=== PATIENT | female | born 1980 | race Two or more races ===

== ENCOUNTER 2023-11-14 19:07 | Emergency (ER) | payer BC, SELFPAY ==
[2023-11-14 19:14] VITALS: BP 118/85; PULSE 82; RESP 18; TEMP 36.7; O2SAT 97
--- NOTE | 2023-11-14 19:39 | ED.WOUNDLAC1 ---
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 Tetanus is no tup to date. No other injuries or complaints. She said that this occurred at work but she does not want to file a Worker's Compensation Related Data Allergies Allergy/AdvReac Type Severity Reaction Status Date / Time No Known Drug Allergies Allergy Verified 11/14/23 19:18 [facility] PFS Social History Smoking status: Never smoker Exam Narrative Exam Narrative: Nurses notes and vital signs reviewed and patient is not hypoxic. afebrile General: Well-appearing and in no apparent distress. Skin: Warm, dry, no pallor noted. Eye: Pupils are equal, round and EOMI. No scleral icterus. Cardiovascular: normal peripheral perfusion. Respiratory: No accessory muscle use or respiratory distress. Musculoskeletal: RIGHT HAND - gaping laceration right 5th finger measuring 1cm and penetrating into the subcutaneous tissue but not the extensor tendon or any arterial structure. No foreign material noted. No other injury to the hand, fingers of the right hand with normal ROM, no edema/swelling Neurological: A&O x4. No cranial nerve dysfunction observed. No truncal ataxia. Moves all extremities. Sensation intact. Psychiatric: Cooperative and interactive. Normal mood and affect. Constitutional Vital Signs, click to edit/add: Last Vital Signs Temp 98.0 F 11/14/23 19:14 Pulse 82 11/14/23 19:14 Resp 18 11/14/23 19:14 BP 118/85 11/14/23 19:14 Pulse Ox 97 11/14/23 19:14 Course Vital Signs Vital signs: Vital Signs Temperature 98.0 F 11/14/23 19:14 Pulse Rate 82 11/14/23 19:14 Respiratory Rate 18 11/14/23 19:14 Blood Pressure 118/85 11/14/23 19:14 Pulse Oximetry 97 11/14/23 19:14 Temperature 98.0 F 11/14/23 19:14 Pulse Rate 82 11/14/23 19:14 Respiratory Rate 18 11/14/23 19:14 Blood Pressure 118/85 11/14/23 19:14 Pulse Oximetry 97 11/14/23 19:14 MDM - Wound/Laceration MDM Narrative Medical decision making narrative: tetanus updated. Laceration repair: All of the procedure was done under sterile conditions. Wound cleansed with Hibiclens solution and anesthetized with local injection of approximately 3mL of lidocaine 1% without epinephrine and then the wound was irrigated with approximately 3 mL of the same 1% lidocaine without epinephrine. The wound was explored to depth and found to be free of foreign material. The laceration wound edges were well-approximated and did not require revision. Wound closed with 5 sterile 4-0 ethilon sutures in simple interrupted fashion. Patient tolerated the procedure well. The patient was neurovascularly intact post-repair. Topical bacitracin applied to the laceration and it was dressed with a dry sterile dressing. The patient will need to follow-up in the next 10 days for removal. Patient was instructed to have the sutures removed either at a local urgent care, her primary care physician or she could return to the emergency department if needed. Discharge Plan Discharge Chief Complaint: Wound/Laceration Clinical Impression: Laceration Patient Disposition: Home, Self-Care Time of Disposition Decision: 20:06 Print Language: Macedonian Instructions: Finger Laceration (ED) Stand Alone Forms: Portal Instructions Referrals: Physician,Non-Staff, MD [Primary Care Provider] - 1 week Procedures ED Laceration Laceration Laceration 1: Additional comments: See my description and MDM
[2023-11-14] MEDS: ADACEL DIPH,PERTUSS(ACELL),TET VAC/PF 0.5 ML ADULT SYRINGE IM (20:22)
[2023-11-14] MEDS: LIDOCAINE HCL 1% 100 MG/10 ML MDV INJ (20:22)
[2023-11-14] MEDS: HYDROCODONE/ACET 5-325 MG TABLET 1 TAB PO (20:22)
== END 2023-11-14 20:32 | disposition home or self-care (01) ==
PROVIDERS: Emergency Provider Emergency Medicine
DX: S61.216A Laceration without foreign body of right little finger without damage to nail, initial encounter (principal); W26.8XXA Contact with other sharp object(s), not elsewhere classified, initial encounter; Z23 Encounter for immunization
CPT/HCPCS: 12001; 90471; 90715; 99284

== ENCOUNTER 2024-11-15 19:44 | Emergency (ER) | payer BC, SELFPAY ==
[2024-11-15 19:47] VITALS: BP 114/87; PULSE 88; TEMP 36.6; O2SAT 100
--- OUTSIDE RECORDS SUMMARY | 2024-11-15 19:48 | XMS_ITS | CCD ---
Author Organization [facility] [employer] [facility] Care Team Providers Care Telemarketing Supervisor Name Role Phone Unavailable Primary Care Provider ARRON Moody Attending Unavailable Medications Completed/Discontinued Medications Medication Drug Class(es) Dates Sig (Normalized) Sig (Original) acetaminophen 500 mg oral tablet (1 source) Start: 11-15-2022 End: 11-15-2022 acetaminophen (TYLENOL) tablet 1,000 mg Start: 11-15-2022 End: 11-15-2022 acetaminophen (TYLENOL) tabl et 1,000 mg Problems Problem Classification Problem Date Documented Da te Episodic/Chronic Other non-traumatic joint disorders (1 source) Pain of left wrist; Translations: [Pain in left wrist] Episodic Other non-traumatic joint disorders (2 sources) Pain in wrist; Translations: [Wrist Pain] Onset: 11-15-2022 Episodic Results Test Name Value Interpretation Reference Range Facil ity XR WRIST LEFT (MIN 3 VIEWS)o n 11-15-2022 XR WRIST LEFT (MIN 3 VIEWS) EXAMINATION: 3 XRAY VIEWS OF THE LEFT WRIST 11/15/2022 9:58 am COMPARISON: None. HISTORY: ORDERING SYSTEM PROVIDED HISTORY: pain TECHNOLOGIST PROVIDED HISTORY: pain FINDINGS: No fracture or dislocation. No destructive or erosive osseous change. Joint spaces are preserved. Bone mineralization is within normal limits. IMPRESSION: No significant osseous abnormality Interpreted by: Kunal Stewart MD Signed by: Kunal Stewart MD 11/15/22 Final result Normal [facility] No significant osseous abnormality [facility] EXAMINATION: 3 XRAY VIEWS OF THE LEFT WRIST 11/15/2022 9:58 am COMPARISON: None. HISTORY: ORDERING SYSTEM PROVIDED HISTORY: pain TECHNOLOGIST PROVIDED HISTORY: pain FINDINGS: No fracture or dislocation. No destructive or erosive osseous change. Joint spaces are preserved. Bone mineralization is within normal limits. [facility] Kunal Stewart MD - 11/15/2022 EXAMINATION: 3 XRAY VIEWS OF THE LEFT WRIST 11/15/2022 9:58 am COMPARISON: None. HISTORY: ORDERING SYSTEM PROVIDED HISTORY: pain TECHNOLOGIST PROVIDED HISTORY: pain FINDINGS: No fracture or dislocation. No destructive or erosive osseous change. Joint spaces are preserved. Bone mineralization is within normal limits. IMPRESSION: No significant osseous abnormality [employer] Work Phone: Radiology Study observation (narrative) [employer] Work Phone: XR WRIST LEFT (MIN 3 VIEWS)O rdered By: Kunal Stewart on 11-15-2022 [employer] [facility] [employer] Work Phone: Vital Signs Date Time Vital Sign Value Performing Clinician Faci lity 11-15-2022 09:46-0500 Body temperature 97.81 [degF] Arron Calderon [employer] Phone: [employer] 11-15-2022 09:46-0500 Diastolic blood pressure 72 mm[Hg] Arron Calderon [employer] Phone: [employer] 11-15-2022 09:46-0500 Heart rate 70 /min Arron Calderno DO [employer] Phone: [employer] 11-15-2022 09:46-0500 Respiratory rate 16 /min Arron Calderon [employer] Phone: [employer] 11-15-2022 09:46-0500 SaO2% (BldA) [Mass fraction] 99 % Arron Calderon DO [employer] Phone: [employer] 11-15-2022 09:46-0500 Systolic blood pressure 94 mm[Hg] Arron Calderon DO [employer] Phone: [employer] Encounters Encounter Date Encounter Type Care Provider Facility Start: 11-15-2022 Emergency department [facility] Start: 11-15-2022 End: 11-15-2022 Emergency department patient visit Arron Calderon DO Work Phone: [facility] ED Comment on above: Left wrist pain (Brittni mitch Dx) Procedures Date Procedure Procedure Detail Performing Clinician Start: 11-15-2022 Radex wrist complete minimum 3 views Arron Calderon DO Work Phone: Plan of Treatment Date Care Activity Detail Author Start: 04-17-2022 Influenza vaccination Flu vaccine (# 1) [facility] Start: 2020 Lipid panel Lipids [facility] Start: 2010 Screening for malign ant neoplasm of cervix [facility] Start: 2001 Screening for malign ant neoplasm of cervix Pap smear [facility] Start: 1999 DTaP/Tdap/Td vaccine (1 - Tdap) DTaP/Tdap/Td vaccine (1 - Tdap) [facility] Start: 1998 Hepatitis C screening Hepatitis C sc reen [facility] Start: 1995 HIV screening HIV screen [facility] Start: 1992 Depression Screen Depression Screen [facility] Start: 1981 Varicella vaccine (1 of 2 - 2-dose childhood series) Varicella vaccine (1 of 2 - 2-dose childhood series) [facility] Start: 1980 COVID-19 Vaccine (#1) COVID-19 Vacci ne (#1) [facility] Payers Date Payer Category Payer Unknown [id number] 1980 Unknown [id number] Social History Date Type Detail Facility [facility] [employer] Work Phone: Start: 1980 Sex Assigned At Not on file [facility] [employer] Phone: Start: 11-05-2022 End: 11-15-2022 Exposure to SARS-CoV-2 (event) Not sure [employer] Phone: Hospital Discharge instructions 11-15-2022 Discharge InstructionsAttachments Note Date & Type Note Facility 11-15-2022 Hospital Discharg e instructions Arron Calderon DO - 11/15/2022 10:40 AM EST You can alternate between 800 mg of ibuprofen and 650 mg of Tylenol every 4 hours for pain. Call and follow-up with your family doctor if needed. Return to the emergency department for new, worsening or worrisome symptoms. The following attachments cannot be sent through Care Everywhere.Musculoskeletal Pain (Uruguayan)documented in this encounter [employer] Phone: Evaluation note Note Date & Type Note Facility Evaluation note Diagnosis Left wrist pain- Primary Pain in joint, forearm documented in this encounter [employer] Phone: Summary Purpose Family History No Family History Records Found Advance Directives No Advanced Directives Records Found Additional Source Comments Reason for Visit (unrecogniz ed section and content) Reason Comments Wrist Pain Slipped and fell at work. Complaint of left wrist pain. Denies hitting head. Scheduled Active and Recently Administ ered Medications (unrecognized section and content) Medication Order 11/13/2022 11/14/2022 11/15/2022 acetaminophen (TYLENOL) tablet 1,000 mg (COMPLETED) 1,000 mg, Oral, NOW, 1 dose, On Sun11/15/22 at 1100, Maximum dose of acetaminophen is 4000 mg from all sources in 24 hours. 1049 (Given - Provid er: Lolly Villanueva RN) INFORMATION SOURCE (unrecogn ized section and content) DATE CREATED AUTHOR 11/16/2022 Josey Gayla quiles FOR RECORDS PERTAINING TO PATIENTS WHO ARE OR HAVE BEEN ENROLLED IN A CHEMICAL DEPENDENCY/SUBSTANCEABUSE PROGRAM, SOME INFORMATION MAY BE OMITTED. This clinical summary was aggregated from multiple sources. Caution should be exercised in using it in the provision of clinical care. This summary normalizes information from multiple sources, and as a consequence, information in this document may materially change the coding, format and clinical context of patient data. In addition, data may be omitted in some cases. CLINICAL DECISIONS SHOULD BE BASED ON THE PRIMARY CLINICAL RECORDS. [facility]. provides no warranty or guarantee of the accuracy or completeness of information in this document.
--- NOTE | 2024-11-15 20:01 | ED.GENADUL1 ---
HPI HPI - General Adult General Chief complaint: Allergic Reaction Stated complaint: rash Time Seen by Provider: 11/15/24 19:51 Source: patient Mode of arrival: walk-in History of Present Illness HPI narrative: 44-year-old female to the emergency department chief complaint of several months of rash. She reports that she has a rash that comes and goes. Seems to be best in the morning and get worse throughout the day. Seems to be worse on days she works. She reports that it is pruritic. She is seeing her primary care doctor and in other hospitals for this. They have tried Zyrtec and hydroxyzine with no relief. She presents here today for another opinion. No other symptoms. No new exposures. Related Data Allergies Allergy/AdvReac Type Severity Reaction Status Date / Time No Known Drug Allergies Allergy Verified 11/14/23 19:18 Opioid HPI Opioid Management Most Recent Opioid Data: No Data to Display Review of Systems ROS Status of ROS 10 or more systems reviewed and unremarkable except as noted in history and below [facility] Social History Smoking status: Never smoker Exam Narrative Exam Narrative: VITALS: I have reviewed the triage vital signs. GENERAL: Well developed, well appearing adult in no acute distress. NEURO: Alert and oriented. Moves all extremities. Face is symmetric and expressive. EYES: PERRL. No scleral icterus or conjunctival injection. No discharge. HENT: Normocephalic, atraumatic. Hearing is grossly intact. Nares grossly patent and without discharge. Mucous membranes moist. NECK: No JVD. Patient moves neck without restriction. CARDIO: Rhythm regular. Normal rate. No murmur, rub, or gallop. Pulses equal bilaterally in the upper and lower extremity. No lower extremity edema. PULM: Lungs clear to auscultation in all cotto. No wheezes, rales, or rhonchi. No conversational dyspnea. No splinting, stridor, or accessory muscle use. EXTREMITIES: Symmetric muscle bulk. No joint swelling. No clubbing, cyanosis, or deformity. SKIN: Warm and dry. Normal turgor. Diffuse urticaria. No petechia, purpura, sloughing, mucosal involvement. PSYCH: Mood, affect, and interaction is appropriate to the setting. Constitutional Vital Signs, click to edit/add: Last Vital Signs Temp 97.8 F 11/15/24 19:47 Pulse 88 11/15/24 19:47 Resp 16 11/15/24 19:47 BP 114/87 11/15/24 19:47 Pulse Ox 100 11/15/24 19:47 O2 Del Method Room Air 11/15/24 19:47 Course Vital Signs Vital signs: Vital Signs Temperature 97.8 F 11/15/24 19:47 Pulse Rate 88 11/15/24 19:47 Respiratory Rate 16 11/15/24 19:47 Blood Pressure 114/87 11/15/24 19:47 Pulse Oximetry 100 11/15/24 19:47 Oxygen Delivery Method Room Air 11/15/24 19:47 Temperature 97.8 F 11/15/24 19:47 Pulse Rate 88 11/15/24 19:47 Respiratory Rate 16 11/15/24 19:47 Blood Pressure 114/87 11/15/24 19:47 Pulse Oximetry 100 11/15/24 19:47 Oxygen Delivery Method Room Air 11/15/24 19:47 Medical Decision Making MDM Narrative Medical decision making narrative: Rash chronic, ongoing. Changes daily. Vital stable, the patient is afebrile. No evidence of anaphylaxis. Will treat with Kenalog. I recommended they use a new laundry detergent given the distribution of her clothes areas. Follow-up with PCP. Return precautions were discussed. All questions were answered. The patient was discharged home. Discharge Plan Discharge Chief Complaint: Allergic Reaction Clinical Impression: Urticaria Patient Disposition: Home, Self-Care Time of Disposition Decision: 20:00 Condition: Good Mode of Transportation: Private Vehicle Print Language: Luxembourgish Instructions: Urticaria (ED) Additional Instructions: Obtain dye and fragrance free laundry soap. Follow-up with your doctor in 1 week to see if symptoms have improved. Referrals: MARYLIN YOUNG [Primary Care Provider] - 1 week
[2024-11-15] MEDS: TRIAMCINOLONE ACETONIDE 40 MG/ML VIAL IM (20:05)
== END 2024-11-15 20:09 | disposition home or self-care (01) ==
PROVIDERS: Emergency Provider Student in an Organized Health Care Education/Training Program; PCP Internal Medicine
DX: L50.9 Urticaria, unspecified (principal)
CPT/HCPCS: 99284; J3301